=== PATIENT | male | born 1955 | race Caucasian/White ===

== ENCOUNTER 2017-05-30 10:05 | Emergency (ER) | payer OTHER ==
[2017-05-30 10:12] VITALS: BP 148/87; TEMP 97.7
[2017-05-30] MEDS ORDERED: LIDOCAINE 2% JELLY 20 ML (UROJECT) ONE (10:21)
[2017-05-30] MEDS ORDERED: LIDOCAINE 2% JELLY 20 ML (UROJECT) UR ONE (10:36)
[2017-05-30 10:44] LABS: COLOR YELLOW; LEUKOCYTE ESTERASE,URINE NEGATIVE (NEGATIVE); NITRITE,URINE NEGATIVE (NEGATIVE)
[2017-05-30 10:46] LABS: MUCUS TRACE /lpf (NONE-1+)
[2017-05-30 10:47] LABS: WBC,URINE NONE SEEN /hpf (0-3)
--- NOTE | 2017-05-30 10:48 | EDPHY ---
H & P Stated Complaint: unable to urinate since last night Time Seen by Provider: 05/30/17 10:18 HPI/ROS: CHIEF COMPLAINT: "I can not urinate" HISTORY OF PRESENT ILLNESS: 62-year-old male history of BPH, complaining of urinary retention, last able to urinate before going to bed last evening. 5 time I examined him he has already had a Chapin catheter placed with 850 cc of clear, yellow urine. He is feeling significant improvement. He denies: Recent surgeries or anesthesia use, denies back pain, denies peripheral paresthesia, weakness, numbness, radiculopathy, saddle anesthesia, abdominal or genital trauma. Bowel movements normal PRIMARY CARE PROVIDER:Jean-Claude Ro REVIEW OF SYSTEMS: A ten point review of systems was performed and is negative with the exception of the items mentioned in the HPI PAST MEDICAL & SURGICAL HISTORY: Seizure disorder. BPH. Daily Flomax SOCIAL HISTORY: nonsmoker PHYSICAL EXAM (Prior to examination, patient consented to physical exam, hands were washed and my usual and customary physical exam procedures followed) 1) GENERAL: Well-developed, well-nourished, alert and oriented. Appears to be in no acute distress. 2) HEAD: Normocephalic, atraumatic 3) HEENT: Pupils equal, round, reactive to light bilaterally. Sclera anicteric. Nasopharynx, oropharynx, clear, no lesions. Moist mucous membranes 4) NECK: Full range of motion, no meningeal signs. 5) LUNGS: Clear auscultation bilaterally, no wheezes, no rhonchi, no retractions. 6) HEART: Regular rate and rhythm, no murmur, no heave, no gallop. 7) ABDOMEN: No guarding, no rebound, no focal tenderness, negative McBurney's, negative Mart's, negative Rovsing's, negative peritoneal sign, 8) MUSCULOSKELETAL: Moving all extremities, no focal areas of tenderness, no obvious trauma. No peripheral edema or discoloration. 9) BACK: No CVA tenderness, no midline vertebral tenderness, no fluctuance, no step-off, no obvious trauma, no visual or palpable abnormality. Patella and Achilles reflexes intact to bilateral strength 5/5 10) SKIN: No rash, no petechiae. [11) : Circumcised, Chapin catheter in place, draining with 850 cc of clear yellow urine all DIFFERENTIAL DIAGNOSIS: [ in no particular include but limited to BPH, urinary retention, cauda equina - Personal History Current Tetanus/Diphtheria Vaccine: Yes Tetanus Vaccine Date: unknown - Medical/Surgical History Hx Asthma: No Hx Chronic Respiratory Disease: No Hx Diabetes: No Hx Cardiac Disease: No Hx Renal Disease: No Hx Cirrhosis: No Hx Alcoholism: No Hx HIV/AIDS: No Hx Splenectomy or Spleen Trauma: No Other PMH: bph/seizure disorder - Social History Smoking Status: Never smoked Constitutional: Initial Vital Signs Temperature (C) 36.5 C 05/30/17 10:10 Heart Rate 59 L 05/30/17 10:10 Respiratory Rate 17 05/30/17 10:10 Blood Pressure 148/87 H 05/30/17 10:10 O2 Sat (%) 97 05/30/17 10:10 O2 Delivery Mode Room Air Allergies/Adverse Reactions: No Known Allergies Allergy (Verified 05/30/17 10:08) Home Medications: Medication Instructions Recorded Atorvastatin Calcium [Lipitor 10 10 mg PO HS 11/16/ mg] Acetaminophen [Tylenol ES 500 mg 500 mg PO ONCE PRN 02/10/12 (OTC)] Aspirin [Aspirin 81mg (OTC)] 81 mg PO HS 02/10/12 Pepcid Ac 10 mg PO DAILY PRN 02/10/12 Keppra 05/30/17 Tamsulosin HCl 05/30/17 Medical Decision Making ED Course/Re-evaluation: Patient is feeling significant relief after Chapin catheter placement. Urinalysis performed showing no bacteriuria are pyuria, doubt cauda equina. Plan will be discharged with Chapin catheter in place, follow-up the Urology Dr. Chandu Pringle in 1 day or return emergency department if he is unable to be seen by urologist as today is . He feels comfortable being discharged. Usual and customary urologic precautions instructions provided - Data Points Laboratory Results: 05/30/17 10:35 Urine Color Pending Urine Appearance Pending Urine pH Pending Ur Specific [place] Pending Urine Protein Pending Urine Ketones Pending Urine Blood Pending Urine Nitrate Pending Urine Bilirubin Pending Urine Urobilinogen Pending Ur Leukocyte Esterase Pending Urine RBC Pending Urine WBC Pending Ur Epithelial Cells Pending Urine Glucose Pending Medications Given: Discontinued Medications Lidocaine (Uroject Lidocaine 2% Jelly) 20 ml UR EDNOW ONE Stop: 05/30/17 10:37 Last Admin: 05/30/17 10:37 Dose: 20 ml Departure - Departure Disposition: Home, Routine, Self-Care Clinical Impression: Urinary retention, History of BPH Condition: Good Instructions: Benign Prostatic Hypertrophy (ED), Urinary Retention in Men (ED) Additional Instructions: Return to the emergency department if you develop abdominal pain, if your catheter no longer drains urine, if you develop fevers or any other symptoms that concern you Referrals: Jean-Claude Ro MD [Primary Care Provider] - 1 day without fail Chandu Pringle MD [Medical Doctor] - 1 day without fail (Dr. Pringle is a urologist)
[2017-05-30 11:25] VITALS: PULSE 62; RESP 16; O2SAT 96
== END 2017-05-30 11:21 | disposition home or self-care (01) ==
PROC: 0T9B70Z Drainage of Bladder with Drainage Device, Via Natural or Artificial Opening (ICD-10-PCS; principal; 2017-05-30)
DX: R33.9 Retention of urine, unspecified (principal); Z79.82 Long term (current) use of aspirin; Z87.438 Personal history of other diseases of male genital organs

== ENCOUNTER → 2018-07-30 | Outpatient (CLI) | payer OTHER | LOC: FIMAGING 13:24 | PROVIDERS: ATTEND Internal Medicine | DX: R91.1 Solitary pulmonary nodule (principal) ==